=== PATIENT | male | born 1965 | race Caucasian/White ===

== ENCOUNTER 2020-06-29 11:46 | Outpatient (REF) | payer OTHER, SELFPAY | END 2020-06-29 11:47 | disposition home or self-care (01) | LOC: HO.BBR 11:46 | PROVIDERS: Visit Provider Internal Medicine Hematology | DX: D75.1 Secondary polycythemia (principal) | CPT/HCPCS: 85018; 99195 ==

== ENCOUNTER 2020-09-30 09:05 | Outpatient (REF) | payer OTHER, SELFPAY | END 2020-09-30 09:06 | disposition home or self-care (01) | LOC: HO.BBR 09:05 | PROVIDERS: Visit Provider Internal Medicine Hematology | DX: D75.1 Secondary polycythemia (principal) | CPT/HCPCS: 85014; 85018; 99195 ==

== ENCOUNTER 2020-11-14 08:28 | Outpatient (REF) | payer OTHER, SELFPAY | END 2020-11-14 08:29 | disposition home or self-care (01) | LOC: HO.BBR 08:28 | PROVIDERS: Visit Provider Internal Medicine Hematology | DX: D75.1 Secondary polycythemia (principal) | CPT/HCPCS: 36415; 85014; 85018; 99195 ==

== ENCOUNTER 2020-11-18 08:27 | Outpatient (REF) | payer OTHER, SELFPAY | END 2020-11-18 08:28 | disposition home or self-care (01) | LOC: HO.BBR 08:27 | PROVIDERS: Visit Provider Internal Medicine Hematology | DX: D75.1 Secondary polycythemia (principal) | CPT/HCPCS: 36415; 85018; 99195 ==

== ENCOUNTER 2021-01-20 07:57 | Outpatient (REF) | payer OTHER, SELFPAY | END 2021-01-20 07:58 | disposition home or self-care (01) | LOC: HO.BBR 07:57 | PROVIDERS: Visit Provider Internal Medicine Hematology | DX: Z01.818 Encounter for other preprocedural examination (principal); D75.1 Secondary polycythemia | CPT/HCPCS: 85018 ==

== ENCOUNTER 2021-03-21 08:03 | Outpatient (REF) | payer OTHER, SELFPAY | END 2021-03-21 08:04 | disposition home or self-care (01) | LOC: HO.BBR 08:03 | PROVIDERS: Visit Provider Internal Medicine Hematology | DX: D75.1 Secondary polycythemia (principal) | CPT/HCPCS: 85014; 85018; 99195 ==

== ENCOUNTER 2021-05-30 10:16 | Outpatient (REF) | payer OTHER, SELFPAY | END 2021-05-30 10:17 | disposition home or self-care (01) | LOC: HO.BBR 10:16 | PROVIDERS: Visit Provider Internal Medicine Hematology | DX: D75.1 Secondary polycythemia (principal) | CPT/HCPCS: 85018; 99195 ==

== ENCOUNTER 2021-08-08 07:53 | Outpatient (REF) | payer OTHER, SELFPAY | END 2021-08-08 07:54 | disposition home or self-care (01) | LOC: HO.BBR 07:53 | PROVIDERS: Visit Provider Internal Medicine Hematology | DX: D75.1 Secondary polycythemia (principal) | CPT/HCPCS: 85014; 85018; 99195 ==

== ENCOUNTER 2021-10-06 10:03 | Outpatient (REF) | payer OTHER, SELFPAY | END 2021-10-06 10:04 | disposition home or self-care (01) | LOC: HO.BBR 10:03 | PROVIDERS: Visit Provider Internal Medicine Hematology | DX: D75.1 Secondary polycythemia (principal) | CPT/HCPCS: 85014; 85018; 99195 ==

== ENCOUNTER 2021-12-05 09:00 | Outpatient (REF) | payer OTHER, SELFPAY | END 2021-12-05 09:01 | disposition home or self-care (01) | LOC: HO.BBR 09:00 | PROVIDERS: Visit Provider Internal Medicine Hematology | DX: D75.1 Secondary polycythemia (principal) | CPT/HCPCS: 85014; 85018; 99195 ==

== ENCOUNTER 2022-02-06 09:03 | Outpatient (REF) | payer OTHER, SELFPAY | END 2022-02-06 09:04 | disposition home or self-care (01) | LOC: HO.BBR 09:03 | PROVIDERS: Visit Provider Internal Medicine Hematology | DX: D75.1 Secondary polycythemia (principal) | CPT/HCPCS: 85018; 99195 ==

== ENCOUNTER 2022-04-20 11:11 | Outpatient (REF) | payer OTHER, SELFPAY | END 2022-04-20 11:12 | disposition home or self-care (01) | LOC: HO.BBR 11:11 | PROVIDERS: Visit Provider Internal Medicine Hematology | DX: D75.1 Secondary polycythemia (principal) | CPT/HCPCS: 85018; 99195 ==

== ENCOUNTER 2022-06-19 08:58 | Outpatient (REF) | payer OTHER, SELFPAY | END 2022-06-19 08:59 | disposition home or self-care (01) | LOC: HO.BBR 08:58 | PROVIDERS: Visit Provider Internal Medicine Hematology | DX: D75.1 Secondary polycythemia (principal) | CPT/HCPCS: 85018; 99195 ==

== ENCOUNTER 2022-08-23 09:04 | Outpatient (REF) | payer OTHER, SELFPAY | END 2022-08-23 09:05 | disposition home or self-care (01) | LOC: HO.BBR 09:04 | PROVIDERS: Visit Provider Internal Medicine Hematology | DX: D75.1 Secondary polycythemia (principal) | CPT/HCPCS: 85018; 99195 ==

== ENCOUNTER 2022-10-24 08:55 | Outpatient (REF) | payer OTHER, SELFPAY | END 2022-10-24 08:56 | disposition home or self-care (01) | LOC: HO.BBR 08:55 | PROVIDERS: Visit Provider Internal Medicine Hematology | DX: D75.1 Secondary polycythemia (principal) | CPT/HCPCS: 85018; 99195 ==

== ENCOUNTER 2023-01-02 10:52 | Outpatient (REF) | payer OTHER, SELFPAY | END 2023-01-02 10:53 | disposition home or self-care (01) | LOC: HO.BBR 10:52 | PROVIDERS: Visit Provider Internal Medicine Hematology | DX: D75.1 Secondary polycythemia (principal) | CPT/HCPCS: 85014; 85018; 99195 ==

== ENCOUNTER 2023-03-13 11:31 | Outpatient (REF) | payer OTHER, SELFPAY | END 2023-03-13 11:32 | disposition home or self-care (01) | LOC: HO.BBR 11:31 | PROVIDERS: Visit Provider Internal Medicine Hematology | DX: D75.1 Secondary polycythemia (principal) | CPT/HCPCS: 85018; 99195 ==

== ENCOUNTER 2023-05-22 08:02 | Outpatient (REF) | payer OTHER, SELFPAY | END 2023-05-22 08:03 | disposition home or self-care (01) | LOC: HO.BBR 08:02 | PROVIDERS: PCP Internal Medicine; Visit Provider Internal Medicine Hematology | DX: D75.1 Secondary polycythemia (principal) | CPT/HCPCS: 85018; 99195 ==

== ENCOUNTER 2023-08-22 09:01 | Outpatient (REF) | payer OTHER, SELFPAY | END 2023-08-22 09:02 | disposition home or self-care (01) | LOC: HO.BBR 09:01 | PROVIDERS: PCP Internal Medicine; Visit Provider Internal Medicine Hematology | DX: D75.1 Secondary polycythemia (principal) | CPT/HCPCS: 85018; 99195 ==

== ENCOUNTER 2023-11-05 08:01 | Outpatient (REF) | payer OTHER, SELFPAY | END 2023-11-05 08:02 | disposition home or self-care (01) | LOC: HO.BBR 08:01 | PROVIDERS: PCP Internal Medicine; Visit Provider Internal Medicine Hematology | DX: D75.1 Secondary polycythemia (principal) | CPT/HCPCS: 85018; 99195 ==

== ENCOUNTER 2024-01-13 09:26 | Outpatient (REF) | payer OTHER, SELFPAY | END 2024-01-13 09:27 | disposition home or self-care (01) | LOC: HO.BBR 09:26 | PROVIDERS: PCP Internal Medicine; Visit Provider Internal Medicine Hematology | DX: D75.1 Secondary polycythemia (principal) | CPT/HCPCS: 85018; 99195 ==

== ENCOUNTER 2024-04-15 08:55 | Outpatient (REF) | payer OTHER, SELFPAY | END 2024-04-15 08:56 | disposition home or self-care (01) | LOC: HO.BBR 08:55 | PROVIDERS: PCP Internal Medicine; Visit Provider Internal Medicine Hematology | DX: D75.1 Secondary polycythemia (principal) | CPT/HCPCS: 85018; 99195 ==

== ENCOUNTER 2024-06-03 08:55 | Outpatient (REF) | payer OTHER, SELFPAY | END 2024-06-03 08:56 | disposition home or self-care (01) | LOC: HO.BBR 08:55 | PROVIDERS: PCP Internal Medicine; Visit Provider Internal Medicine Hematology | DX: D75.1 Secondary polycythemia (principal) | CPT/HCPCS: 85014; 85018; 99195 ==

== ENCOUNTER 2024-10-09 08:55 | Outpatient (REF) | payer OTHER, SELFPAY | END 2024-10-09 08:56 | disposition home or self-care (01) | LOC: HO.BBR 08:55 | PROVIDERS: PCP Internal Medicine; Visit Provider Internal Medicine Hematology | DX: D75.1 Secondary polycythemia (principal) | CPT/HCPCS: 85014; 85018; 99195 ==

== ENCOUNTER 2024-12-23 10:34 | Outpatient (REF) | payer OTHER, SELFPAY ==
--- OUTSIDE RECORDS SUMMARY | 2024-12-23 12:09 | XMS_ITS | Encounter Summary ---
Author Organization [facility] Address [address] [place] [address] Care Team Providers Care Auditing Coder Name Role Phone Ayo Vuong MD Primary Care Provider + Encounter Details Date Type Department Care Team (Late st Contact Info) Description 12/21/2024 Scanned Document [address] [place] [phone] Provider, Generic Social History Tobacco Use Types Packs/Day Years Used Date Smoking Tobacco: Never Smokeless Tobacco: Never Alcohol Use Standard Drinks/Week Comments Not Currently 0 (1 standard drink = 0.6 oz pur e alcohol) Sex and Gender Information Value Date Recorded Sex Assigned at Not on file Gender Identity Not on file Sexual Orientation Not on file documented as of this encounter Plan of Treatment Not on file documented as of this encounter Visit Diagnoses Not on filedocumented in this encounter Care Teams Auditing Coder Relationship Specialty Start Date End Date Ayo Vuong MD [address] [place] [address] [address] [place] [address] PCP - General 12/21/24 documented as of this encounter
--- OUTSIDE RECORDS SUMMARY | 2024-12-23 12:09 | XMS_ITS | Clinical Summary ---
Author Organization [facility] Address [address] [place] [id number] Care Team Providers Care Skein Inspector Name Role Phone Ayo Vuong MD Primary Care Provider + Allergies No known active allergies Medications Medication Sig Dispensed Refills Start Date End Date Status Eliquis 5 MG tablet Take 5 mg by mouth 2 times a day. Active cyanocobalamin (VITAMIN B-12) 1000 MCG tablet Take 1,000 mcg by mouth daily. Active DULoxetine (CYMBALTA) 20 MG capsule Take 20 mg by mouth 2 times a day. Active Jardiance 10 MG tablet Take 1 tablet by mouth daily. 06/01/2024 Active Krill Oil 1000 MG Cap Take 1,000 mg by mouth. Active losartan-hydroCHLO ROthiazide (HYZAAR) 100-25 MG per tablet Take 1 tablet by mouth. Active metFORMIN (GLUCOPHAGE) 1000 MG tablet Take 1,000 mg by mouth 2 (two) times a day with meals. Active metoPROLOL SUCCINATE (TOPROL-XL) 50 MG 24 hr tablet Take 50 mg by mouth. 12/11/2024 Ac tive MILK THISTLE PO Take 1,000 mg by mouth. Active niacin 250 MG tablet Take 1 Tablet by mouth daily (with breakfast). Active oxyCODONE (ROXICODONE) 5 MG immediate release tablet Take 5 mg by mouth 4 (four) times a day as needed. For pain Active rosuvastatin (CRESTOR) 20 MG tablet Take 20 mg by mouth nightly. Active tadalafil (CIALIS) 5 mg tablet Take 5 mg by mouth. Acti ve testosterone enanthate (DELATESTRYL) 200 MG/ML injection testosterone enanthate 200 mg/mL intramuscular oil INJECT 0.5 CC INTRAMSUCULARLY TWICE A WEEK ON SATURDAY & SATURDAY(VIAL ONLY STABLE FOR 28 DAYS AFTER BEING PUNCTURED AND SHOULD BE DISCARDED Active Active Problems No known active problems Encounters Date Type Department Care Team Description 12/21/2024 2:32 PM EDT Hospital Encounter [facility] Urgent [address] [place] [phone] Martín Mckeon MD 12/21/2024 2:15 PM EDT Office Visit [facility] [address] [phone] Martín Mckeon MD Devitt, Anna C, APRN Right foot sprain, initial encounter (Primary Dx); Right foot injury, initial encounter 12/21/2024 Scanned Document [facility] [address] [facility] [address] [place] [phone] Provider, Generic 12/21/2024 Scanned Document [facility] [address] [facility] [address] [place] [phone] Provider, Generic 12/21/2024 Travel from Last 3 Months Social History Tobacco Use Types Packs/Day Years Used Date Smoking Tobacco: Never Smokeless Tobacco: Never Alcohol Use Standard Drinks/Week Comments Not Currently 0 (1 standard drink = 0.6 oz pur e alcohol) Sex and Gender Information Value Date Recorded Sex Assigned at Not on file Gender Identity Not on file Sexual Orientation Not on file Last Filed Vital Signs Vital Sign Reading Time Taken Comments Blood Pressure 126/78 12/21/2024 2:18 PM EDT Pulse 84 12/21/2024 2:18 PM EDT Temperature 36.5 ??C (97.7 ??F) 12/21/2024 2:18 PM ED T Respiratory Rate 16 12/21/2024 2:18 PM EDT Oxygen Saturation 96% 12/21/2024 2:18 PM EDT Inhaled Oxygen Concentration - - Weight 95.3 kg (210 lb) 12/21/2024 2:18 PM EDT Height 180.3 cm (5' 11 ) 12/21/2024 2:18 PM EDT Body Mass Index 29.29 12/21/2024 2:18 PM EDT Plan of Treatment Health Maintenance Due Date Last Done Comments Hepatitis C Virus Screening 1964 HIV Screening 1977 DTaP/Tdap/Td Vaccines (1 - Tdap) 1983 Colonoscopy 2009 Pneumococcal Vaccines 50+ (1 of 1 - PCV) 2014 Zoster (Shingles) Vaccine (1 of 2) 2014 RSV Vaccine 60 years and old er and Patients (1 - Risk 60-74 years 1-dose series) 2024 Influenza Vaccine 04/16/2024 COVID-19 Vaccine (1 - 2023-2 5 season) 2024 Hepatitis B Vaccines Aged Out No long er eligible based on patient's age to complete this topic Procedures Procedure Name Priority Date/Time Associated Diagnosis Comments XR FOOT 3+ VIEWS-RIGHT STAT 12/21/2024 2:39 PM EDT Right foot injury, initial encounter from Last 3 Months Results * XR Foot 3+ views-Right (12/21/2024 [...] the toes caught the other individuals ribs. ??Has had constant pain since that time. Comparison: None Technique: Dorsal plantar, oblique and lateral views of the right foot were obtained. Findings: ??No fracture or dislocation. Moderate hallux valgus deformity [...] halluxvalgus deformity. Norma Barnard APRN IMG DIAGNOSTIC IMAGI NG ORDERABLES from Last 3 Months Care Teams Skein Inspector Relationship Specialty Start Date End Date Ayo Vuong MD [address] [place] [address] [address] [place] [address] PCP - General 12/21/24
--- OUTSIDE RECORDS SUMMARY | 2024-12-23 12:09 | XMS_ITS | Encounter Summary ---
Author Organization [facility] Address [address] [place] [address] Care Team Providers Care Garment Form Assembler Name Role Phone Ayo Vuong MD Primary Care Provider + Encounter Details Date Type Department Care Team (Late st Contact Info) Description 12/21/2024 2:32 PM EDT Hospital Encounter [facility] Care [address] [place] [phone] Martín Mckeon MD [address] [place] [address] Social History Tobacco Use Types Packs/Day Years [...] Barnard APRN IMG DIAGNOSTIC IMAGI NG ORDERABLES documented in this encounter Visit Diagnoses Not on filedocumented in this encounter Care Teams Garment Form Assembler Relationship Specialty Start Date End Date Ayo Vuong MD [address] [place] [address] [address] [place] [address] PCP - General 12/21/24 documented as of this encounter
--- OUTSIDE RECORDS SUMMARY | 2024-12-23 12:09 | XMS_ITS | Encounter Summary ---
Author Organization [facility] Address [address] [place] [address] Care Team Providers Care Recharger Name Role Phone Ayo Vuong MD Primary Care Provider + Encounter Details Date Type Department Care Team (Late st Contact Info) Description 12/21/2024 Scanned Document [address] [place] [phone] Provider, Generic Social History Tobacco Use Types [...] on filedocumented in this encounter Care Teams Recharger Relationship Specialty Start Date End Date Ayo Vuong MD [address] [place] [address] [address] [place] [address] PCP - General 12/21/24 documented as of this encounter
--- OUTSIDE RECORDS SUMMARY | 2024-12-23 12:09 | XMS_ITS | Clinical Summary ---
Author Organization [facility] Address [address] [place] [phone] Phone Care Team Providers Care Music Agent Name Role Phone Ayo Vuong MD Primary Care Provider [phone] Allergies No known active allergies Medications metoprolol tartrate (LOPRESSOR) 25 MG tablet TAKE 1 TABLET BY MOUTH TWICE A DAY 180 tablet 1 10/28/19 20 Active Zoster Vac Recomb Adjuvanted (Shingrix) 50 MCG/0.5ML reconstituted suspension Shingrix (PF) 50 mcg/0.5 mL intramuscular suspension, kit PHARMACY ADMINISTERED Active triamcinolone (KENALOG) 0.1 % cream triamcinolone acetonide 0.1 % topical cream APPLY TO LEG RASH TWICE DAILY NEEDED NOT TO EXCEED 2 WEEKS Active testosterone enanthate (DELATESTRYL) 200 MG/ML injection testosterone enanthate 200 mg/mL intramuscular oil INJECT 0.5 CC INTRAMSUCULARLY TWICE A WEEK ON SATURDAY & SATURDAY(VIAL ONLY STABLE FOR 28 DAYS AFTER BEING PUNCTURED AND SHOULD BE DISCARDED Active oxyCODONE (ROXICODONE) 5 MG immediate release tablet oxycodone 5 mg tablet TAKE 1 TABLET BY MOUTH TWICE A DAY NEEDED Active losartan-hydroCHL OROthiazide (HYZAAR) 100-25 MG per tablet losartan 100 mg-hydrochlorothia zide 25 mg tablet TAKE 1 TABLET BY MOUTH EVERY DAY Active traZODone (DESYREL) 50 MG tablet Take 50 mg by mouth every night Active rosuvastatin (CRESTOR) 20 MG tablet Take 20 mg by mouth 1 (one) time each day Active apixaban (Eliquis) 5 MG tablet Take 5 mg by mouth in the morning and 5 mg in the evening. Active niacinamide 500 MG tablet Take 500 mg by mouth in the morning and 500 mg in the evening. Take with meals. Active Milk Thistle 1000 MG capsule Take 1,000 mg by mouth 1 (one) time each day Active Krill Oil 1000 MG capsule Take 1,000 mg by mouth 1 (one) time each day Active metFORMIN (GLUCOPHAGE) 1000 MG tablet Take 1 tablet (1,000 mg total) by mouth in the morning and 1 tablet (1,000 mg total) in the evening. Take with meals. 180 tablet 3 04/10/20 23 Active Jardiance 10 MG tablet Take 1 tablet by mouth 1 (one) time each day 06/01/20 24 Active Active Problems Problem Noted Date Diagnosed Date Vitamin D deficiency, not otherwise specified Secondary hyperparathyroidism 10/25/2024 Polycythemia, secondary 10/25/2024 Diabetes mellitus, not otherwise specified 10/25 Hyponatremia 10/25/2024 Hereditary hemochromatosis 05/04/2024 Proteinuria, not otherwise specified 10/13/2023 Pituitary mass 08/25/2023 History of radiofrequency ablation operation for arrhythmia 02/15/2023 Overview (10/25/2024): DONE on 01/23/23 at [facility] w [facility] indications:symptomatic drug refractory atrial fibrillation Atrial fibrillation 10/30/2022 Overview (10/25/2024): Paroxysmal atrial fibrillation status post cryoballoon ablation in January 2023. Brief episodes of palpitations. Prefers to stay on Eliquis. [id number] score of 2 for hypertension and diabetes. 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 Echocardiogram showed mild left and right ventricular enlargement but otherwise preserved LVEF. Trace to mild MR. No history of hyperthyroidism. Minimal alcohol exposure. Last Assessment & Plan: Doing well maintaining sinus rhythm without antiarrhythmic agents. Brief episodes of palpitations are likely premature atrial complexes. I did suggest he obtain a [employer] mobile device so we can record some of those episodes for me to review in the future. He will continue his regular exercise and healthy lifestyle. He will continue to avoid any alcohol or excessive caffeine. He will take Eliquis after a thorough discussion of pros and cons of continuing it at his own as he feels more comfortable continuing with it. Continue metoprolol for rate control and its antihypertensive effects. Chronic kidney disease stage 3 03/05/2021 Dyslipidemia 03/05/2021 Transient cerebral ischemia 02/27/2021 Overview (10/25/2024): Question of TIA 01/2021 Last Assessment & Plan: Patient seen by vascular neurology. He is on aspirin and Crestor at this point. He denies any recurrent visual changes. Vertebral artery occlusion 02/27/2021 Overview (10/25/2024): Patient has chronic right vertebral artery occlusion noted on CT scan 01/2021. Last Assessment & Plan: Patient CT scan revealed chronic right vertebral artery occlusion. No carotid stenosis identified. Continue with aspirin and crestor as prescribed. Hypertension 12/17/2018 Resolved Problems Problem Noted Date Diagnosed Date Resolved Date Hypertensive disorder 03/05/20212022 Hypogonadotropic hypogonadism 12/17/2018 03/05/2021 Pituitary microadenoma 12/17/201803/05 Sleep apnea 12/17/2018 03/05/2021 Encounters Date Type Department Care Team Description 10/28/2024 Orders Only [facility] [address] [facility] [address] [place] [id number] Joshua Serrano MD Chronic kidney disease stage 3 (HCC); Hypertension; Dyslipidemia; Proteinuria, not otherwise specified 10/26/2024 8:00 AM EST [facility] [address] [facility] [address] [place] [id number] Joshua Serrano MD Chronic kidney disease stage 3 (HCC) (Primary Dx); Dyslipidemia; Hypertension; Proteinuria, not otherwise specified; Vitamin D deficiency, not otherwise specified; Secondary hyperparathyroidism (HCC); Diabetes mellitus, not otherwise specified (HCC); Hyponatremia from Last 3 Months Family History Medical History Relation Comments Cancer Father lymphoma Hypertension Father Hypertension Mother Hypertension Sibling sister Relation Status Comments Father Unknown Mother Unknown Sibling Social History Tobacco Use Types Packs/Day Years Used Date Smoking Tobacco: Never Alcohol Use Standard Drinks/Week Comments No 0 (1 standard drink = 0.6 oz pur e alcohol) Sex and Gender Information Value Date Recorded Sex Assigned at Not on file Legal Sex Male 4:32 PM EST Gender Identity Not on file Sexual Orientation Not on file Last Filed Vital Signs Vital Sign Reading Time Taken Comments Blood Pressure 132/84 10/26/2024 7:48 AM EST Pulse 74 10/26/2024 7:48 AM EST Temperature - - Respiratory Rate - - Oxygen Saturation 97% 10/26/2024 7:48 AM EST Inhaled Oxygen Concentration - - Weight 100 kg (221 lb) 10/26/2024 7:48 AM EST Height 180.3 cm (5' 11 ) 10/26/2024 7:48 AM EST Body Mass Index 30.82 10/26/2024 7:48 AM EST Plan of Treatment Upcoming Encounters Date Type Department Care Team (Late st Contact Info) Description 04/26/2025 8:00 AM EDT Office Visit [facility] [address] [address] Joshua Serrano MD [address] [address] Health Maintenance Due Date Last Done Comments Pneumococcal Vaccine: Pediat rics (0 to 5 Years) and At-Risk Patients (6 to 64 Years) (1 of 2 - PCV) 1970 Colorectal Cancer Screening: Annual FOBT 2013 Colorectal Cancer Screening: Colonoscopy 2013 Colorectal Cancer Screening: Sigmoidoscopy 2013 Diabetes: Hemoglobin A1C 10/28/2023 Diabetes: Ophthalmology Exam 10/28/2023 Diabetes: Pedal Pulse Checked 10/28/2023 Diabetes: Sensory Foot Exam 10/28/2023 Diabetes: Visual Foot Exam 10/28/2023 Influenza Vaccine (Season Ended) 2025 Hepatitis B Vaccine Aged Out No longe r eligible based on patient's age to complete this topic Procedures Procedure Name Priority Date/Time Associated Diagnosis Comments PTH, INTACT Routine 10/23/2024 9:16 AM EST MAGNESIUM Routine 10/23/2024 9:16 AM EST PHOSPHATE ( PHOSPHORUS) Routine 10/23/2024 9:16 AM EST URIC ACID Routine 10/23/2024 9:16 AM EST VITAMIN D 25 HYDROXY Routine 10/23/2024 9:16 AM EST PROTEIN / CREATININE RATIO, URINE Routine 10/23/2024 9:16 AM EST URINALYSIS WITH MICROSCOPIC Routine 10/23/2024 9:16 AM EST COMPREHENSIVE METABOLIC PANEL Routine 10/23/2024 9:16 AM EST CBC AND DIFFERENTIAL Routine 10/23/2024 9:16 AM EST MICROSCOPIC EXAMINATION - DO NOT USE Routine 10/23/2024 9:16 AM EST from Last 3 Months Results * Microscopic Examination (10/23/2024 9:16 AM EST) WBC, Urine None seen 0 - 5 /hpf [facility] RBC, Urine None seen 0 - 2 /hpf [facility] Squamous Epithelial, Urine None seen 0 - 10 /hpf [facility] Casts None seen None seen /lpf [facility] Bacteria, Urine None seen None seen/Few [facility] 10/23/2024 9:16 AM EST 10/23/2024 us Joshua Serrano MD LAB MICROBIOLOGY - GENERAL OR DERABLES Final Result [facility] [address] [place] [address] * (ABNORMAL) Protein, Total, Random Urine w/Creatinine (Protein/Creat Ratio) (10/23/2024 9:16 AM EST) Creatinine, Ur 115.3 Not Estab. mg/dL [facility] Protein, Ur 73.8 Not Estab. mg/dL [facility] Urine Protein/Creati nine Ratio 640(H) 0 - 200 mg/g creat [facility] 10/23/2024 9:16 AM EST 10/23/2024 Joshua Serrano MD LAB URINE ORDERABLES Final Re sult Performing Organization Address City/[facility]/ZIP Co de Phone Number [facility] [address] [place] [address] * Vitamin D 25 Hydroxy (10/23/2024 9:16 AM EST) Vitamin D, 25-OH, Total 33.4 30.0 - 100.0 ng/mL [facility] Comment: Vitamin D deficiency has been defined by the Keeler of Medicine and an Endocrine Society practice guideline as a level of serum 25-OH vitamin D less than 20 ng/mL (1,2). The Endocrine Society went on to further define vitamin D insufficiency as a level between 21 and 29 ng/mL (2). 1. IOM (Keeler of Medicine). 2010. Dietary reference ?? intakes for calcium and D. [place]: The ?? National Academies Press. 2. Maurice MF, Arjun NC, Esteban BEVERLY, et al. ?? Evaluation, treatment, and prevention of vitamin D ?? deficiency: an Endocrine Society clinical practice ?? guideline. JCEM. 2010; 96(7):1911-30. 10/23/2024 9:16 AM EST 10/23/2024 Joshua Serrano MD LAB BLOOD ORDERABLES Final Re sult [facility] [address] [place] [address] * (ABNORMAL) Urinalysis with microscopic (10/23/2024 9:16 AM EST) Specific [place], Urine >=1.030(A) 1.005 - 1.030 [facility] pH Urine 5.5 5.0 - 7.5 [facility] [phone] Color, Urine Yellow Yellow [facility] Appearance Urine Clear Clear [facility] WBC Esterase Urine Negative Negative [facility] [phone] Protein, Ur 2+(A) Negative/Tra ce [facility] Glucose, Ur 3+(A) Negative [facility] Ketones, Urine Negative Negative [facility] [phone] Blood Urine Negative Negative [facility] Bilirubin Urine Negative Negative [facility] Urobilinogen Urine 0.2 0.2 - 1.0 mg/dL [facility] Nitrite, Urine Negative Negative [facility] Microscopic Examination See below: [facility] Comment:Microscopic was alesia cated and was performed. 10/23/2024 9:16 AM EST 10/23/2024 us Joshua Serrano MD LAB URINE ORDERABLES Final Re sult [facility] [address] [place] [address] * (ABNORMAL) CBC and Differential (10/23/2024 9:16 AM EST) Pathologist [facility] WBC 7.5 3.4 - 10.8 x10E3/uL [facility] RBC 6.03(H) 4.14 - 5.80 x10E6/uL [facility] Hemoglobin 15.9 13.0 - 17.7 g/dL [facility] Hematocrit 51.2(H) 37.5 - 51.0 % [facility] MCV 85 79 - 97 fL [facility] MCH 26.4(L) 26.6 - 33.0 pg [facility] MCHC 31.1(L) 31.5 - 35.7 g/dL [facility] RDW 15.1 11.6 - 15.4 % [facility] Platelets 247 150 - 450 x10E3/uL [facility] Neutrophils Relative 68 Not Estab. % [facility] Lymphocytes Relative 20 Not Estab. % [facility] Monocytes 9 Not Estab. % [facility] Eosinophils Relative 2 Not Estab. % [facility] Basophils Relative 1 Not Estab. % [facility] Neutrophils Absolute 5.1 1.4 - 7.0 x10E3/uL [facility] Lymphocytes Absolute 1.5 0.7 - 3.1 x10E3/uL [facility] Monocytes Absolute 0.7 0.1 - 0.9 x10E3/uL [facility] Eosinophils Absolute 0.2 0.0 - 0.4 x10E3/uL [facility] Basophils Absolute 0.1 0.0 - 0.2 x10E3/uL [facility] Immature Granulocytes 0 Not Estab. % [facility] Immature Grans (Absolute) 0.0 0.0 - 0.1 x10E3/uL [facility] 10/23/2024 9:16 AM EST 10/23/2024 us Joshua Serrano MD LAB BLOOD ORDERABLES Final Re sult Performing Organization Address [facility]/ZIP Co de Phone [facility] [address] [place] [address] * Uric Acid (10/23/2024 9:16 AM EST) Uric Acid 5.7 3.8 - 8.4 mg/dL [facility] Comment:Therapeutic target f or gout patients: <6.0 10/23/2024 9:16 AM EST 10/23/2024 us Joshua Serrano MD LAB BLOOD ORDERABLES Final Re sult Performing Organization Address [facility] de Phone Number [facility] [address] [place] [address] * (ABNORMAL) Phosphorus (10/23/2024 9:16 AM EST) Phosphorus 2.4(L) 2.8 - 4.1 mg/dL [facility] 10/23/2024 9:16 AM EST 10/23/2024 us Joshua Serrano MD LAB BLOOD ORDERABLES Final Re sult Performing Organization Address [facility] Co de Phone Number [facility] [address] [place] [address] * PTH, Intact (10/23/2024 9:16 AM EST) PTH 23 15 - 65 pg/mL [facility] 10/23/2024 9:16 AM EST 10/23/2024 us Joshua Serrano MD LAB BLOOD ORDERABLES [facility] [address] [place] [address] * Magnesium (10/23/2024 9:16 AM EST) Pathologist [facility] Magnesium 2.2 1.6 - 2.3 mg/dL [facility] 10/23/2024 9:16 AM EST 10/23/2024 Joshua Serrano MD LAB BLOOD ORDERABLES Final Re sult Performing Organization Address City/[facility]/ZIP Co de Phone Number [facility] [address] [place] [address] * (ABNORMAL) Comprehensive Metabolic Panel (10/23/2024 9:16 AM EST) Pathologist [facility] Glucose 118(H) 70 - 99 mg/dL [facility] BUN 27 8 - 27 mg/dL [facility] Creatinine 1.78(H) 0.76 - 1.27 mg/dL [facility] eGFR CKD-EPI CR 2020 43(L) >59 mL/min/1.7 3 [facility] BUN/Creatinine Ratio 15 10 - 24 [facility] Sodium 140 134 - 144 mmol/L [facility] Potassium 4.2 3.5 - 5.2 mmol/L [facility] Chloride 101 96 - 106 mmol/L [facility] Bicarbonate (CO2) 22 20 - 29 mmol/L [facility] Calcium 9.8 8.6 - 10.2 mg/dL [facility] Total Protein 7.1 6.0 - 8.5 g/dL [facility] Albumin 4.8 3.8 - 4.9 g/dL [facility] Globulin 2.3 1.5 - 4.5 g/dL [facility] Total Bilirubin 0.9 0.0 - 1.2 mg/dL [facility] Alkaline Phosphatase 57 44 - 121 IU/L [facility] AST (SGOT) 37 0 - 40 IU/L [facility] ALT (SGPT) 36 0 - 44 IU/L [facility] 10/23/2024 9:16 AM EST 10/23/2024 us Joshua Serrano MD LAB BLOOD ORDERABLES Final [facility] Organization Address City/State/ZIP Co de Phone Number [facility] [address] [place] [address] from Last 3 Months Insurance [facility] Care Teams Music Agent Relationship Specialty Start Date End Date Ayo Vuong MD [facility] [address] [facility] [address] [place], [place] PCP - General 07/21/19
--- OUTSIDE RECORDS SUMMARY | 2024-12-23 12:09 | XMS_ITS | Clinical Summary ---
Author Organization [facility] Address [address] [facility] [place] [address] Phone Care Team Providers Care Digital Art Director Name Role Phone Ayo Vuong MD Primary Care Provider [phone] Allergies No known active allergies Medications apixaban (Eliquis) 5 mg tablet Take 1 tablet (5 mg total) by mouth 2 (two) times a day. 06/04/2023 Active empagliflozin (Jardiance) 10 mg tablet Take 10 mg by mouth daily. Active tadalafiL (CIALIS) 5 mg tablet Take 1 tablet (5 mg total) by mouth 1 (one) time each day. Active cyanocobalamin (VITAMIN B-12) 1,000 mcg tablet Take 1 tablet (1,000 mcg total) by mouth 1 (one) time each day. Active niacin 250 mg tablet Take 1 Tablet by mouth daily (with breakfast). Active TURMERIC ORAL Take by mouth daily. Active MILK THISTLE ORAL Take 1,000 mg by mouth daily. Active OMEGA-3 FATTY ACIDS-FISH OIL ORAL Take by mouth daily. Active metoprolol tartrate (LOPRESSOR) 50 mg tablet Take 1 tablet (50 mg total) by mouth 1 (one) time each day. 05/07/2022 Active rosuvastatin (CRESTOR) 20 mg tablet Take 20 mg by mouth daily. Active testosterone cypionate (Testone CIK) 200 mg/mL injection Inject 200 mg into the skin once a week. 11/10/2017 Active losartan-hydroC HLOROthiazide (HYZAAR) 100-25 mg per tablet Take 1 tablet by mouth 1 (one) time each day. Active oxyCODONE (ROXICODONE) 5 mg immediate release tablet Take 5 mg by mouth every 4 hours as needed. Active metFORMIN (GLUCOPHAGE) 1,000 mg tablet Take 1 tablet (1,000 mg total) by mouth 2 (two) times a day with meals. Active DULoxetine (CYMBALTA) [address] capsule Take 1 capsule (20 mg total) by mouth 1 (one) time each day. Do not crush or chew. Active Active Problems Problem Noted Date Diagnosed Date Diabetes 07/12/2023 Atrial fibrillation 10/30/2022 Overview (09/25/2024): Paroxysmal atrial fibrillation status post cryoballoon ablation in January 2023. Brief episodes of palpitations. Prefers to stay on Eliquis. [id number] score of 2 for hypertension and diabetes. [...] complexes. I did suggest he obtain a [employer] mobile device so we can record some [...] for rate control and its antihypertensive effects. High cholesterol 03/08/2022 Overview (09/25/2024): Last Assessment & Plan: Patient continues on rosuvastatin 20 mg once a day. His last LDL cholesterol was 54. This is at goal. VIRI (obstructive sleep apnea) 02/27/2021 Overview (09/25/2024): Last Assessment & Plan: Patient encouraged to continue with obstructive sleep apnea treatment. TIA (transient ischemic attack) 02/27/2021 Overview (09/25/2024): Question of TIA 01/2021 Last Assessment & Plan: Patient seen by vascular neurology. He is on aspirin and Crestor at this point. He denies any recurrent visual changes. Vertebral artery occlusion 02/27/2021 Overview (09/25/2024): Patient has chronic right vertebral artery occlusion noted on CT scan 01/2021. Last Assessment & Plan: Patient CT scan revealed chronic right vertebral artery occlusion. No carotid stenosis identified. Continue with aspirin and crestor as prescribed. Hypertension 08/26/2020 Overview (09/25/2024): Last Assessment & Plan: Appears to be normotensive on current medications and diet. Continue regular exercise. Encounters Date Type Department Care Team Description 11/18/2024 8:40 AM EST Office Visit [facility] [address] [place] [address] Leslie Dobbs NP Atrial fibrillation, unspecified type (CMS/HCC) (Primary Dx); Primary hypertension; High cholesterol from Last 3 Months Surgical History Surgery Date Site/Laterality Comments APPENDECTOMY PROCEDURE: HISTORICAL APPENDECTOMY ROTATOR CUFF REPAIR PROCEDURE: HISTORICAL ROTATOR CUFF REPAIR Medical History Medical History Date Comments Testicular hypofunction 03/08/2022 DX:Testi cular hypofunction Erectile dysfunction DX:Erectile dysfunction Osteoarthritis DX:Osteoarthriti s; COMMENT: of LT and Rt knee joints 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) DX:Neoplasm of uncertain beh avior of pituitary gland (HCC) Arthritis of left wrist DX:Arthr itis of left wrist History of hypogonadism DX:Histo ry of hypogonadism Erythrocytosis DX:Erythrocytosi s; COMMENT: idiopathic Transient cerebral ischemia DX:T ransient cerebral ischemia Family History Medical History Relation Name Comments Other: hodgkin's disease Father Arthritis Mother Coronary artery disease Mother Hypertension Mother Relation Name Status Comments Father Mother Alive Social History Tobacco Use Types Packs/Day Years Used Date Smoking Tobacco: Never Smokeless Tobacco: Never Alcohol Use Standard Drinks/Week Comments Not Currently 0 (1 standard drink = 0.6 oz pur e alcohol) Sex and Gender Information Value Date Recorded Sex Assigned at Not on file Legal Sex Male 7:40 PM EST Gender Identity Not on file Sexual Orientation Not on file Obstetrics History Last Filed Vital Signs Vital Sign Reading Time Taken Comments Blood Pressure 100/68 11/18/2024 8:49 AM EST Pulse 67 11/18/2024 8:39 AM EST Temperature - - Respiratory Rate - - Oxygen Saturation - - Inhaled Oxygen Concentration - - Weight 99.8 kg (220 lb) 11/18/2024 8:39 AM EST Height 180.3 cm (5' 11 ) 11/18/2024 8:39 AM EST Body Mass Index 30.68 11/18/2024 8:39 AM EST Plan of Treatment Health Maintenance Due Date Last Done Comments Diabetes: Annual GFR (Glomerular Filtration Rate) 1964 Diabetes: Annual Foot Exam 1974 Diabetes: Annual Retina Eye Exam 1974 DTaP,Tdap,and Td Vaccines (1 - Tdap) 1983 Pneumococcal Vaccine: 50+ Years (1 of 2 - PCV) 1983 Pneumococcal Vaccine: Pediatrics (0 to 5 Years) and At-Risk Patients (6 to 64 Years) (1 of 2 - PCV) 1983 Cholesterol Screening (Lipid Panel) 08/25/2022 Colorectal Cancer Screening: Colonoscopy 08/25/2022 Depression Screening 08/25/2022 HIV Screening 08/25/2022 Hepatitis C Screening 08/25/2022 Social Influencers of Health Screening 08/25/2022 Hypertension/CHF/CAD Annual BMP Blood Test 08/26/2022 Diabetes: Annual Urine Albumin-Creatinine Ratio (uACR) 10/18/2023 Diabetes: Blood Sugar Control Test (HGBA1C) 10/18/2023 RSV Immunization Adult Patients (1 - Risk 60-74 years 1-dose series) 2024 COVID-19 Vaccine ( season) 2024 07/07/2021, 12/27/2020, 12/06/2020 Zoster Vaccines Completed 02/02/2021, 07/13/2020 Influenza Vaccine Completed 07/15/2024, , 07/07/2021, Additional history exists HIB Vaccines Aged Out No longer eligi ble based on patient's age to complete this topic HPV Vaccines Aged Out No longer eligi ble based on patient's age to complete this topic Hepatitis A Vaccines Aged Out No long er eligible based on patient's age to complete this topic Hepatitis B Vaccines Aged Out No long er eligible based on patient's age to complete this topic IPV Vaccines Aged Out No longer eligi ble based on patient's age to complete this topic MMR Vaccines Aged Out No longer eligi ble based on patient's age to complete this topic Meningococcal ACWY Vaccine Aged Out N o longer eligible based on patient's age to complete this topic Meningococcal B Vaccine Aged Out No l onger eligible based on patient's age to complete this topic RSV Immunization Patients Under 20 months Aged Out No longer eligible based on patient's age to complete this topic Varicella Vaccines Aged Out No longer eligible based on patient's age to complete this topic Procedures Procedure Name Priority Date/Time Associated Diagnosis Comments ECG 12-LEAD Routine 11/18/2024 9:38 AM EST Atrial fibrillation, unspecified type (CMS/HCC) from Last 3 Months Results * ECG 12 lead (11/18/2024 9:38 AM EST) Ventricular Rate ECG 67 BPM GEMUSE Atrial Rate 67 BPM GEMUSE P-R Interval 152 ms GEMUSE QRS Duration 98 ms GEMUSE Q-T Interval 362 ms GEMUSE QTc 382 ms GEMUSE P Wave [place] 68 degrees GEMUSE R [place] 88 degrees GEMUSE T [place] 44 degrees GEMUSE ECG Interpretation Normal sinus rhythm Incomplete right bundle branch block Borderline ECG No previous ECGs available Confirmed by Ivan CARRILLO JAMES ([id number]) on 11/18/2024 12:32:00 PM GEMUSE 11/18/2024 8:47 AM EST 11/18/2024 12:32 PM EST us Leslie Dobbs NP ECG ORDERABLES Edited Resul t - Final GEMUSE from Last 3 Months Insurance [facility] Care Teams Digital Art Director Relationship Specialty Start Date End Date Ayo Vuong MD [address] [place], [place] PCP - General 11/19/17
--- OUTSIDE RECORDS SUMMARY | 2024-12-23 12:09 | XMS_ITS | Encounter Summary ---
Author Organization [facility] Address [address] [place] [id number] Care Team Providers Care Linotyper Name Role Phone Ayo Vuong MD Primary Care Provider + Reason for Visit * Reason Comments Foot Injury Right foot pain afte r kicking someone during kickboxing approx. 1 week ago. Encounter Details Date Type Department Care Team (Late st Contact Info) Description 12/21/2024 2:15 PM EDT Office Visit [facility] [address] [phone] Martín Mckeon MD [address] [place] [address] Norma Barnard, VETERINARY LABORATORY TECHNICIAN [address] [place] [address] Right foot sprain, initial encounter (Primary Dx); Right foot injury, initial encounter Social History Tobacco Use Types Packs/Day Years Used Date Smoking Tobacco: Never Smokeless Tobacco: Never Alcohol Use Standard Drinks/Week Comments Not Currently 0 (1 standard drink = 0.6 oz pur e alcohol) Sex and Gender Information Value Date Recorded Sex Assigned at Not on file Gender Identity Not on file Sexual Orientation Not on file documented as of this encounter Last Filed Vital Signs Vital Sign Reading [...] Mass Index 29.29 12/21/2024 2:18 PM EDT documented in this encounter Progress Notes * Norma Barnard, MARTITA - 12/21/2024 2:42 PM EDT Assessment & Plan Alex was seen today for foot injury. Diagnoses and all orders for this visit: Right foot sprain, initial encounter Right foot injury, initial encounter - XR Foot 3+ views-Right I independently reviewed the Xray images via the electronic system and my reading is as follows: 3 Views, right foot Final Read: no fracture or dislocation Foot sprain. Wear firm supportive shoes. Advised to continue with ice, elevation, analgesics, avoiding activity that exacerbates pain. Follow-up with remote medical coder if pain persist for greater than 7 days. Patient verbalized understanding and agreement with current plan of treatment. No results found for this or any previous visit (from the past 2 hour(s)). Subjective Subjective Patient ID: Alex Fritz is a 59 y.o. male. Patient is a kickboxing. About a week ago he had been kickboxing with villalba guards and foot guards but when he went to kick the other individual he stepped back and his toes hit the ribs of the opponent. He had a lot of swelling as well as black and blue discoloration at that time and has had constant pain since the incident. It hurts for him to bend his first or third toes. He is having some discomfort with standing and walking as well. Has been treating with firm supportive shoes as well as NSAIDs with no improvement. Review of Systems Constitutional: Positive for activity change. Negative for appetite change, chills, diaphoresis andfatigue. Musculoskeletal: Positive for arthralgias, gait problem, joint swelling and myalgias. Skin: Positive for color change. Neurological: Negative for dizziness, weakness, numbness and headaches. Objective Objective Vitals: 12/21/24 1418 BP: 126/78 Pulse: 84 Resp: 16 Temp: 97.7 ??F (36.5 ??C) SpO2: 96% Weight: 95.3 kg (210 lb) Height: 1.803 m (5' 11 ) Physical Exam Vitals and nursing note reviewed. Constitutional: General: He is awake. Appearance: Normal appearance. He is well-developed and well-groomed. He is not ill-appearing, toxic-appearing or diaphoretic. Pulmonary: Effort: Pulmonary effort is normal. Musculoskeletal: Right foot: Decreased range of motion. Normal capillary refill. Swelling, tenderness and bony tenderness present. No crepitus. Normal pulse. Left foot: Normal. Comments: There is pain with palpation of the 1st through 3rd metatarsals near the MTP joint. Limited range of motion of the 1st through 3rd toes. No axial load tenderness. No pain with palpation of the toes. Skin: General: Skin is warm and dry. Neurological: General: No focal deficit present. Mental Status: He is alert and oriented to person, place, and time. Psychiatric: Attention and Perception: Attention normal. Mood and Affect: Affect normal. Behavior: Behavior normal. Behavior is cooperative. documented in this encounter Plan of Treatment Not on [...] ORDERABLES documented in this encounter Visit Diagnoses Diagnosis Right foot sprain, initial encounter- Primary Right foot injury, initial encounter documented in this encounter Care Teams Linotyper Relationship Specialty Start Date End Date Ayo Vuong MD [address] [facility] [address] [place] [address] PCP - General 12/21/24 documented as of this encounter
--- OUTSIDE RECORDS SUMMARY | 2024-12-23 12:09 | XMS_ITS | Encounter Summary ---
Author Organization [facility] Address [address] [place] [address] Care Team Providers Care Kitchen Porter Name Role Phone Ayo Vuong MD Primary Care Provider + Encounter Details Date Type Department Care Team (Latest Contact Info) Description 12/21/2024 Travel Social History Tobacco Use Types Packs/Day Years [...] on filedocumented in this encounter Care Teams Kitchen Porter Relationship Specialty Start Date End Date Ayo Vuong MD [address] [facility] [address] [place] [address] PCP - General 12/21/24 documented as of this encounter
== END 2024-12-23 10:35 | disposition home or self-care (01) ==
LOC: HO.BBR 10:34
PROVIDERS: PCP Internal Medicine; Visit Provider Internal Medicine Hematology & Oncology
DX: D75.1 Secondary polycythemia (principal)
CPT/HCPCS: 85018; 99195

== ENCOUNTER 2025-05-26 10:38 | Outpatient (REF) | payer OTHER, SELFPAY ==
--- OUTSIDE RECORDS SUMMARY | 2024-12-21 14:32 | XMS_ITS | Encounter Summary ---
Author Organization [facility] Address [address] [place] [address] Care Team Providers Care Furnace Feeder Name Role Phone Ayo Vuong MD Primary Care Provider + Encounter Details Date Type Department Care Team (Late st Contact Info) Description 12/21/2024 2:32 PM EDT Hospital Encounter [facility] [address] [place] [phone] Martín Mckeon MD [address] [place] [address] Social History Tobacco Use Types Packs/Day Years Used Date Smoking Tobacco: Never Smokeless Tobacco: Never Alcohol Use Standard Drinks/Week Comments Not Currently 0 (1 standard drink = 0.6 oz pur e alcohol) Sex and Gender Information Value Date Recorded Sex Assigned at Not on file Legal Sex Male 6:45 PM EST Gender Identity Not on file Sexual Orientation Not on file documented as of this encounter Plan of Treatment Not on file documented as of this encounter Procedures Procedure Name Priority Date/Time Associated Diagnosis Comments XR FOOT 3+ VIEWS-RIGHT STAT 12/21/2024 2:39 PM EDT Right foot injury, initial encounter documented in this encounter Results * XR Foot 3+ views-Right (12/21/2024 2:39 PM EDT) Anatomical Region Laterality Modality Foot Right Computed Radiogr aphy 12/21/2024 2:52 PM EDT Impressions 12/21/2024 2:56 PM EDT Mild degenerative changes of the first MCP joint due to moderate hallux valgus deformity. Narrative 12/21/2024 2:56 PM EDT History: Hurt 1st through 3rd metatarsals approximately 7 days ago during kickboxing, the toes caught the other individuals ribs. Has had constant pain since that time. Comparison: None Technique: Dorsal plantar, oblique and lateral views of the right foot were obtained. Findings: No fracture or dislocation. Moderate hallux valgus deformity with early degenerative changes of the MCP joint. Punctate circumscribed soft tissue calcifications over the medial aspect of the first metatarsal head are likely degenerative. No periosteal new bone. Soft tissues are otherwise unremarkable. Procedure Note Rusty Santana MD - 12/21/2024 History: Hurt 1st through 3rd metatarsals approximately 7 days ago duringkickboxing, the toes caught the other individuals ribs. Has had constantpain since that time. Comparison: None Technique: Dorsal plantar, oblique and lateral views of the right footwere obtained. Findings: No fracture or dislocation. Moderate hallux valgus deformitywith early degenerative changes of the MCP joint. Punctate circumscribedsoft tissue calcifications over the medial aspect of the first metatarsalhead are likely degenerative. No periosteal new bone. Soft tissues are otherwise unremarkable. IMPRESSION: Mild degenerative changes of the first MCP joint due to moderate halluxvalgus deformity. Norma Barnard APRN IMG DIAGNOSTIC IMAGING ORDERA BLES Final Result documented in this encounter Visit Diagnoses Not on filedocumented in this encounter Care Teams Furnace Feeder Relationship Specialty Start Date End Date Ayo Vuong MD [address] [place] [address] [address] [place] [address] PCP - General 12/21/24 documented as of this encounter
--- OUTSIDE RECORDS SUMMARY | 2025-05-26 13:13 | XMS_ITS | Clinical Summary ---
Author Organization [facility] Address [address] [place] [phone] Phone Care Team Providers Care Certified Tumor Registrar Name Role Phone Ayo Vuong MD Primary Care Provider [phone] Allergies No known active allergies Medications metoprolol [...] (one) time each day 06/01/20 24 Active amoxicillin-clavu lanate (AUGMENTIN) 875-125 MG per tablet TAKE 1 TABLET BY MOUTH TWICE A DAY FOR 10 DAYS WITH FOOD 01/11/20 25 Active Active Problems Problem Noted Date Diagnosed Date Vitamin D deficiency, not otherwise specified Secondary hyperparathyroidism 10/25/2024 Polycythemia, secondary 10/25/2024 Diabetes mellitus, not otherwise specified 10/25 Hyponatremia 10/25/2024 Hereditary hemochromatosis 05/04/2024 Proteinuria, not otherwise specified 10/13/2023 Pituitary mass 08/25/2023 History of radiofrequency ablation operation for arrhythmia 02/15/2023 Overview (10/25/2024): DONE on 01/23/23 at [facility] indications:symptomatic drug refractory atrial fibrillation Atrial fibrillation 10/30/2022 Overview (10/25/2024): Paroxysmal atrial fibrillation status post cryoballoon ablation in January 2023. Brief episodes of palpitations. Prefers to stay on Eliquis. [id number] score of 2 for hypertension and diabetes. [...] complexes. I did suggest he obtain a [email or web address] mobile device so we can record some [...] Encounters Date Type Department Care Team Description 04/25/2025 Orders Only [facility] [address] [phone] Joshua Serrano MD Chronic kidney disease stage 3 (HCC); Dyslipidemia; Hypertension; Proteinuria, not otherwise specified; Vitamin D deficiency, not otherwise specified; Secondary hyperparathyroidism (HCC); Diabetes mellitus, not otherwise specified (HCC); Hyponatremia 04/19/2025 8:00 AM EDT Office Visit [facility] [address] [phone] Joshua Serrano MD Chronic kidney disease stage 3 (HCC) (Primary Dx); Hypertension; Hyponatremia; Proteinuria, not otherwise specified; Secondary hyperparathyroidism (HCC); Transient cerebral ischemia, not otherwise specified; Vitamin D deficiency, not otherwise specified; Hereditary hemochromatosis (HCC); Dyslipidemia from Last 3 Months Family History Medical [...] Sign Reading Time Taken Comments Blood Pressure 140/78 04/19/2025 8:03 AM EDT Pulse 76 04/19/2025 8:03 AM EDT Temperature - - Respiratory Rate - - Oxygen Saturation 97% 04/19/2025 8:03 AM EDT Inhaled Oxygen Concentration - - Weight 103 kg (226 lb) 04/19/2025 8:03 AM EDT Height 180.3 cm (5' 11 ) 10/26/2024 7:48 AM EST Body Mass Index 31.52 10/26/2024 7:48 AM EST Plan of Treatment Upcoming Encounters Date Type Department Care Team (Late st Contact Info) Description 10/20/2025 8:00 AM EST Office [facility] [address] [phone] Joshua Serrano MD [address] [phone] Health Maintenance Due Date Last Done Comments Pneumococcal Vaccine: 50+ Ye ars (1 of 2 - PCV) 1983 Colorectal Cancer Screening: Annual FOBT 2013 Colorectal Cancer Screening: Colonoscopy 2013 Colorectal Cancer Screening: Sigmoidoscopy 2013 Diabetes: Hemoglobin A1C 10/28/2023 Diabetes: Ophthalmology Exam 10/28/2023 Diabetes: Pedal Pulse Checked 10/28/2023 Diabetes: Sensory Foot Exam 10/28/2023 Diabetes: Visual Foot Exam 10/28/2023 Influenza Vaccine (#1) 2025 Hepatitis B Vaccine Aged Out No longe r eligible based on patient's age to complete this topic Procedures Procedure Name Priority Date/Time Associated Diagnosis Comments PTH, INTACT Routine 04/12/2025 6:50 AM EDT MAGNESIUM Routine 04/12/2025 6:50 AM EDT PHOSPHATE ( PHOSPHORUS) Routine 04/12/2025 6:50 AM EDT URIC ACID Routine 04/12/2025 6:50 AM EDT VITAMIN D 25 HYDROXY Routine 04/12/2025 6:50 AM EDT PROTEIN / CREATININE RATIO, URINE Routine 04/12/2025 6:50 AM EDT COMPREHENSIVE METABOLIC PANEL Routine 04/12/2025 6:50 AM EDT CBC AND DIFFERENTIAL Routine 04/12/2025 6:50 AM EDT from Last 3 Months Results * (ABNORMAL) Protein, Total, Random Urine w/Creatinine (Protein/Creat Ratio) (04/12/2025 6:50 AM EDT) Creatinine, Ur 129.8 Not Estab. mg/dL [facility] Protein, Ur 70.0 Not Estab. mg/dL [facility] Urine Protein/Creati nine Ratio 539(H) 0 - 200 mg/g creat [facility] 04/12/2025 6:50 AM EDT 04/12/2025 us Joshua Serrano MD LAB URINE ORDERABLES Final Re sult [facility] [address] [place] [address] * Vitamin D 25 Hydroxy (04/12/2025 6:50 AM EDT) Vitamin D, 25-OH, Total 51.7 30.0 - 100.0 ng/mL [facility] Comment: Vitamin D deficiency has been defined by the [place] of [employer] and an Endocrine Society practice guideline as a level of serum 25-OH vitamin D less than 20 ng/mL (1,2). The Endocrine Society went on to further define vitamin D insufficiency as a level between 21 and 29 ng/mL (2). 1. IOM ([place] of [employer]). 2010. Dietary reference intakes for calcium and D. [place]: The National Academies Press. 2. Maurice MF, Arjun PAL, Esteban BEVERLY, et al. Evaluation, treatment, and prevention of vitamin D deficiency: an Endocrine Society clinical practice guideline. JCEM. 2010; 96(7):1911-30. 04/12/2025 6:50 AM EDT 04/12/2025 us Joshua Serrano MD LAB BLOOD ORDERABLES Final Re sult [facility] [address] [place] [address] * (ABNORMAL) CBC and Differential (04/12/2025 6:50 AM EDT) WBC 7.4 3.4 - 10.8 x10E3/uL [facility] RBC 6.16(H) 4.14 - 5.80 x10E6/uL [facility] Hemoglobin 15.2 13.0 - 17.7 g/dL [facility] Hematocrit 51.8(H) 37.5 - 51.0 % [facility] MCV 84 79 - 97 fL [facility] MCH 24.7(L) 26.6 - 33.0 pg [facility] MCHC 29.3(L) 31.5 - 35.7 g/dL [facility] RDW 18.3(H) 11.6 - 15.4 % [facility] Platelets 213 150 - 450 x10E3/uL [facility] Neutrophils Relative 62 Not Estab. % [facility] Lymphocytes Relative 26 Not Estab. % [facility] Monocytes 9 Not Estab. % [facility] Eosinophils Relative 2 Not Estab. % [facility] Basophils Relative 1 Not Estab. % [facility] Neutrophils Absolute 4.6 1.4 - 7.0 x10E3/uL [facility] Lymphocytes Absolute 1.9 0.7 - 3.1 x10E3/uL [facility] Monocytes Absolute 0.6 0.1 - 0.9 x10E3/uL [facility] Eosinophils Absolute 0.2 0.0 - 0.4 x10E3/uL [facility] Basophils Absolute 0.1 0.0 - 0.2 x10E3/uL [facility] Immature Granulocytes 0 Not Estab. % [facility] Immature Grans (Absolute) 0.0 0.0 - 0.1 x10E3/uL [facility] 04/12/2025 6:50 AM EDT 04/12/2025 us Joshua Serrano MD LAB BLOOD ORDERABLES Final Re sult [facility] [address] [place] [phone] * Uric Acid (04/12/2025 6:50 AM EDT) Uric Acid 4.8 3.8 - 8.4 mg/dL [facility] Comment:Therapeutic target f or gout patients: <6.0 04/12/2025 6:50 AM EDT 04/12/2025 Joshua Serrano MD LAB BLOOD ORDERABLES Final Re sult Performing Organization Address City/[facility]/ZIP Co de Phone Number [facility] [address] [place] [phone] * (ABNORMAL) Phosphorus (04/12/2025 6:50 AM EDT) Phosphorus 2.4(L) 2.8 - 4.1 mg/dL [facility] 04/12/2025 6:50 AM EDT 04/12/2025 Joshua Serrano MD LAB BLOOD ORDERABLES Final Re sult Performing Organization Address [facility]/ZIP Co de Phone Number [facility] [address] [place] [address] * PTH, Intact (04/12/2025 6:50 AM EDT) PTH 15 15 - 65 pg/mL [facility] 04/12/2025 6:50 AM EDT 04/12/2025 Joshua Serrano MD LAB BLOOD ORDERABLES Final Re sult Performing Organization Address City/[facility]/ZIP Co de Phone Number [facility] [address] [place] [address] * Magnesium (04/12/2025 6:50 AM EDT) Magnesium 1.9 1.6 - 2.3 mg/dL [facility] 04/12/2025 6:50 AM EDT 04/12/2025 us Joshua Serrano MD LAB BLOOD ORDERABLES Final Re sult [facility] [address] [place] [address] * (ABNORMAL) Comprehensive Metabolic Panel (04/12/2025 6:50 AM EDT) Glucose 93 70 - 99 mg/dL [facility] BUN 24 8 - 27 mg/dL [facility] Sodium 138 134 - 144 mmol/L [facility] Potassium 4.5 3.5 - 5.2 mmol/L [facility] Chloride 100 96 - 106 mmol/L [facility] Calcium 10.3(H) 8.6 - 10.2 mg/dL [facility] Albumin 4.7 3.9 - 4.9 g/dL [facility] AST (SGOT) 40 0 - 40 IU/L [facility] Creatinine 1.43(H) 0.76 - 1.27 mg/dL [facility] eGFR CKD-EPI CR 2020 56(L) >59 mL/min/1.7 3 [facility] BUN/Creatinine Ratio 17 10 - 24 [facility] Bicarbonate (CO2) 20 20 - 29 mmol/L [facility] Total Protein 7.2 6.0 - 8.5 g/dL [facility] Globulin 2.5 1.5 - 4.5 g/dL [facility] Total Bilirubin 2.4(H) 0.0 - 1.2 mg/dL [facility] Alkaline Phosphatase 53 44 - 121 IU/L [facility] ALT (SGPT) 36 0 - 44 IU/L [facility] 04/12/2025 6:50 AM EDT 04/12/2025 us Joshua Serrano MD LAB BLOOD ORDERABLES Final Re sult [facility] [address] [place] [phone] from Last 3 Months Insurance [facility] [address] [address] [facility] Care Teams Certified Tumor Registrar Relationship Specialty Start Date End Date Ayo Vuong MD [facility] [address] [facility] [address] [place], [place] PCP - General 07/21/19
--- OUTSIDE RECORDS SUMMARY | 2025-05-26 13:13 | XMS_ITS | Clinical Summary ---
Author Organization [facility] Address [address] [facility] [address] [place] [id number] Phone Care Team Providers Care Beet Topper Name Role Phone Femi Vuong MD Primary Care Provider Allergies No known active allergies Medications amoxicillin (AMOXIL) 500 MG capsule TAKE 4 CAPSULES BY MOUTH 1 HOUR PRIOR TO DENTAL APPOINTMENT 07/31/20 23 Active apixaban (ELIQUIS) 5 mg tablet Take 5 mg by mouth 2 (two) times a day. 01/03/20 23 Active ciclopirox (CICLODAN) 0.77 % cream daily as needed. 07/25/20 23 Active desoximetasone (TOPICORT) 0.25 % ointment APPLY TO LEG RASH TWICE A DAY NEEDED NOT TO EXCEED 2 WEEKS AT A TIME 06/17/20 Active fluorouraciL (EFUDEX) 5 % cream 07/25/20 Active losartan-hydro CHLOROthiazide (HYZAAR) 100-25 mg per tablet Take 1 tablet by mouth every morning. 05/16/20 23 Active metFORMIN (GLUCOPHAGE) 1000 MG tablet Take 1,000 mg by mouth 2 (two) times a day with meals. 07/10/20 Active metoprolol tartrate (LOPRESSOR) 50 MG tablet Take 1 tablet by mouth every morning. 07/26/20 Active niacinamide 500 mg tablet Take 500 mg by mouth 2 (two) times a day. Active oxyCODONE 5 MG immediate release tablet Take 5 mg by mouth 3 (three) times a day as needed. 07/08/20 Active BD ULTRA-FINE MICRO PEN NEEDLE 32 gauge x 1/4 Ndle USE 1 NEEDLE DAILY TO INJECT SUBCUTANEOUSLY WITH INSULIN PEN DAILY 06/21/20 Active rosuvastatin (CRESTOR) 20 MG tablet Take 20 mg by mouth. 01/03/20 Active BD LUER-LETICIA SYRINGE 3 mL 21 gauge x 1 Syrg USE INTRAMUSCULARLY TWICE A WEEK DIRECTED 07/31/20 Active testosterone enanthate (DELATESTRYL) 200 mg/mL injection 100 mg once a week. 07/03/20 Active triamcinolone acetonide 0.1 % cream triamcinolone acetonide 0.1 % topical cream APPLY TO LEG RASH TWICE DAILY NEEDED NOT TO EXCEED 2 WEEKS Active prsip-hb-2-dha -ubn-mbbfxkn-z st (KRILL OIL) 1,177-787-68-8 0 mg Cap Take 1,000 mg by mouth 2 (two) times a week. Active MILK THISTLE ORAL Take 1,000 mg by mouth daily. Active Medication-Sidney e Text Magnesium 250 d3 Active tadalafiL (CIALIS) 5 MG tablet Take 5 mg by mouth daily as needed for erectile dysfunction. Active JARDIANCE 10 mg tabletIndicati ons:Type 2 diabetes mellitus with peripheral neuropathy TAKE 1 TABLET BY MOUTH EVERY DAY 90 tablet 03/01/20 Active Active Problems Problem Noted Date Diagnosed Date Hereditary hemochromatosis 05/04/2024 Assessment & Plan (05/04/2024 9:53 PM EDT): Regular therapeutic blood draws every two months. Sister recently diagnosed with same condition. -Check TSH level due to increased risk of thyroid problems with hemochromatosis. -Discussed increased risk of endocrine organ damage including diabetes, hypogonadism, hypothyroidism Type 2 diabetes mellitus with peripheral neuropa thy 08/25/2023 Assessment & Plan (05/04/2024 9:52 PM EDT): Stable on Metformin 1000mg BID and Jardiance 10mg daily. No reported side effects. Last A1c was 6.8 in December. Recent stressors and inconsistent diet due to personal circumstances-His mother last week of CHF after hip fracture and major seizure, and sister was diagnosed with a lung mass recently. -Continue current medication regimen. -Perform fasting blood work including A1c, lipid profile, and kidney function tests when ready. -Check urine protein level due to previous elevated levels up to 300. Assessment & Plan (01/30/2024 12:45 PM EDT): History of prediabetes with elevated A1c of 6% in 02/2019 and in diabetes range 7.1% in 12/2019. Further A1c tests were running between 6.3 and 6.6% in 2020. He was admitted in 12/2022 with symptomatic hyperglycemia and was given the diagnosis of type 2 diabetes. There was a question about pancreatitis with elevated amylase and lipase levels. He was treated with IV insulin as inpatient followed by metformin and Rybelsus. Rybelsus was stopped in 02/2023 because of continued elevation of amylase and lipase. Patient does not recall severe abdominal pain. In mid March 2023 Basaglar was added and at the end of March his metformin dose was increased to 1000 mg twice a day by his mix house tender when his estimated GFR improved to 58 from 46. In 07/2023 we stopped the Basaglar and he remained on maximum dose of metformin. Control remains good, A1c 6.8% recently. Estimated GFR stable at 54. Complications include lower extremity PNP, paresthesia resolved after B12 supplementation started. He has proteinuria with an albumin to creatinine ratio of 306 in 02/2023 followed by mix house tender Dr. Lane. No history of cardiovascular disease, nor retinopathy. Plan to continue the metformin 1000 mg twice a day with monitoring renal function. Add Jardiance 10 mg daily. Pros and cons discussed. Patient to call if side effects. Continue to work on healthy meal plan and regular exercise. 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 He was admitted in 12/2022 with symptomatic hyperglycemia and was given the diagnosis of type 2 diabetes. There was a question about pancreatitis with elevated amylase and lipase levels. He was treated with IV insulin as inpatient followed by metformin and Rybelsus. Rybelsus was stopped in 02/2023 because of continued elevation of amylase and lipase. Patient does not recall severe abdominal pain. In mid March Basaglar was added and at the end of March his metformin dose was increased to 1000 mg twice a day by his mix house tender when his estimated GFR improved to 58 from 46. Retrospective lab review showed elevated A1c test in the prediabetes range in 02/2019 at 6% and in diabetes range in 12/2019 at 7.1% what patient was not aware of until recently. Further A1c tests were running between 6.3 and 6.6% in 2020. His control is good on maximum metformin dose and 8 units of Basaglar at bedtime. Last A1c 6.7% on 07/30/2023. No further hypoglycemia after his Basaglar dose was increased from 12 units to 10 and more recently to 8 units. He had some lower extremity paresthesia which resolved after B12 supplementation started. He has proteinuria with an albumin to creatinine ratio of 306 in 02/2023 followed by mix house tender Dr. Lane. No history of cardiovascular disease, nor retinopathy. Discussed pathophysiology of diabetes and complications of uncontrolled diabetes. Discussed progressive nature of disease. Discussed rationale & goals for control. Role of diet, exercise, medications. Role of & goals for HbA1c & SMBG. Reviewed options to improve control with risks & benefits, including intensification of lifestyle & available medications. Reviewed normal insulin physiology, role of basal insulin. Reviewed site rotation, effect of site on insulin absorption. Discussed storage/shelf life of insulin. Discussed prevention & treatment of hypoglycemia. Suggested to continue the metformin 1000 mg twice a day with monitoring renal function. Will stop the Basaglar. Patient will work on carbohydrate controlled meal plan with a goal of about 50 g of carbohydrates with meals and about 15 g per snack. He already met the dietitian in 04/2023. He is planning to restart his exercise routine which will definitely help his blood sugars. If fasting sugars over 140-150 and or postprandial blood sugars over 180 repeatedly we may add an SGLT2 inhibitor. To call or send in log with problems with glucose control. Next labs after 10/27/2023. Hypogonadism in male 08/25/2023 Assessment & Plan (05/04/2024 9:53 PM EDT): Stable on 100mg testosterone injections weekly. No reported side effects. Last testosterone level check was in December. -Continue current medication regimen. - May check coverage for Xyosted-testosterone enanthate autoinjector with SQ use. -Check testosterone level mid-interval () after next injection (Saturday). -Check CBC due to testosterone treatment. Assessment & Plan (01/30/2024 12:49 PM EDT): Patient has been on testosterone replacement for years. 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 History of pituitary microadenoma-likely nonfunctioning. I suggested he decreases his testosterone dose from 100 mg testosterone enanthate twice a week to once a week back in 07/2023 but he continues on the twice a week dosing. As a side effect of testosterone he has polycythemia treated with phlebotomy every 2 months and followed by Dr. Joseph. He has untreated VIRI, repeat sleep study is pending. He is getting prostate exam regularly by his PCP, and recent visit with urologist diagnosed slight prostate enlargement. Partial ED, started on daily Cialis a month ago by urologist which improved urinary stream and helped prevent urinary dripping. Last PSA was normal at 0.9 in 02/2023. He reports benefit in mood, motivation, strength and libido while taking testosterone and would like to continue. Labs on 01/02/2024 did not report testosterone, CBC, will recheck results with lab in few days. Recommended patient to decrease his testosterone dose to 100 mg once a week while waiting for results considering the polycythemia and sleep apnea. Assessment & Plan (08/25/2023 4:52 PM EST): Patient has been on testosterone and replacement for years. He recalls a pituitary tumor diagnosed by Dr. Mai years ago. Unfortunately I have no records. He records his last pituitary MRI about 3 years ago by PCP. He is currently on 100 mg testosterone enanthate twice a week. As a side effect of testosterone he has polycythemia treated with phlebotomy every 2 months and followed by Dr. Sebastien dupree. He has on treated VIRI, repeat sleep study is pending. He is getting prostate exam regularly by his PCP, last PSA was normal at 0.9 in 02/2023. He reports benefit in mood, motivation, strength and libido while taking testosterone and would like to continue. Unfortunately I do not have any more recent testosterone levels on him. Considering the polycythemia I recommended he decrease his testosterone dose to 100 mg once a week. Would recheck peak testosterone 3 to 4 days after injection in 10/2023 with monitoring H&H as well. Pituitary mass 08/25/2023 Assessment & Plan (05/04/2024 9:54 PM EDT): Patient recalls a pituitary mass diagnosed by Dr. Jasper Mai years ago when evaluated for low testosterone. MRI brain 01[place]29/2021 [place] [facility]: This study was not dedicated to the pituitary. Per report partially visualized pituitary with known microadenoma, size not mentioned. CT head on 01/02/2023: No mention of abnormality in the pituitary. Assume that patient has a nonfunctioning pituitary microadenoma. Will try to get earlier imaging listing the size of the adenoma. Patient denies any headaches or visual changes. Assessment & Plan (01/30/2024 12:37 PM EDT): Patient recalls a pituitary mass diagnosed by Dr. Jasper Mai years ago when evaluated for low testosterone. MRI brain 01/29/2021 at [facility] [place]: This study was not dedicated to the pituitary. Per report partially visualized pituitary with known microadenoma, size not mentioned. CT head on 01/02/2023: No mention of abnormality in the pituitary. Assume that patient has a nonfunctioning pituitary microadenoma. Will try to get earlier imaging listing the size of the adenoma. Patient denies any headaches or visual changes. Assessment & Plan (08/25/2023 4:54 PM EST): Patient recalls a pituitary mass diagnosed by Dr. Jasper Mai years ago when evaluated for low testosterone. Unfortunately I do not have any details. Last MRI about 3 years ago by PCP, will request records. Patient denies any headaches or visual changes. Hypertensive disorder 04/07/2012 Overview (11/05/2014): Hypertensive disorder Hyperlipidemia 04/07/2012 Overview (11/05/2014): Hyperlipidemia Hearing loss 04/07/2012 Overview (11/05/2014): Hearing loss; Left Chronic anxiety 04/07/2012 Overview (11/05/2014): Chronic anxiety Encounters Date Type Department Care Team Description 02/27/2025 Refill [facility] [address] [place] [address] Merna Hurtado MD Medication Refill from Last 3 Months Family History Medical History Relation Comments Cancer Father Hypertension Mother Osteoarthritis Mother Seizures Mother Relation Status Comments Father Mother Alive Social History Tobacco Use Types Packs/Day Years Used Date Smoking Tobacco: Never Smokeless Tobacco: Never Tobacco Cessation:Counseling Given: Not Answered Alcohol Use Standard Drinks/Week Comments Never 0 (1 standard drink = 0.6 oz pur e alcohol) Education Answer Date Recorded Are you interested in more education? Not on bonnie e 03/28/2023 Are you concerned about learning? Not on file 03/28/2023 No 03/28/2023 No 03/28/2023 Digital Access Answer Date Recorded No 03/28/2023 No 03/28/2023 Reliable internet access at home? Not on file 03/28/2023 Device with a working camera? Not on file Sex and Gender Information Value Date Recorded Sex Assigned at Not on file Legal Sex Male 7:36 PM EST Gender Identity Not on file Sexual Orientation Not on file Last Filed Vital Signs Vital Sign Reading Time Taken Comments Blood Pressure 128/80 05/04/2024 11:34 AM EDT Pulse 73 05/04/2024 11:34 AM EDT Temperature 36.7 C (98 F) 04/07/2012 2:04 PM EDT Respiratory Rate - - Oxygen Saturation 99% 05/04/2024 11: 34 AM EDT Inhaled Oxygen Concentration - - Weight 103.6 kg (228 lb 6.4 oz) 024 11:34 AM EDT Height 180.3 cm (5' 10.98 ) 05/04/2024 11:34 AM EDT Body Mass Index 31.87 05/04/2024 11:34 AM EDT Plan of Treatment Upcoming Encounters Date Type Department Care Team (Late st Contact Info) Description 06/09/2025 3:00 PM EDT Office Visit [facility] [address] [place] [address] Susannah Marquez MD [address] [place] [address] [address] [place] [address] Health Maintenance Due Date Last Done Comments Adult Td,Tdap Booster 1964 HEMOGLOBIN A1C 1964 DEPRESSION SCREENING 1976 HEPATITIS C SCREENING 1982 HIV ONE-TIME SCREENING (18-65 YEARS) 1982 PNEUMOCOCCAL VACCINES (50+ years) (1 of 2 - PCV) 1983 COLOGUARD 2009 COLONOSCOPY 2009 COLORECTAL CANCER SCREENING 2009 FIT TEST 2009 FOBT 2009 SIGMOIDOSCOPY 2009 VIRTUAL COLONOSCOPY 2009 DIABETIC EYE EXAM 08/25/2023 RSV VACCINE (1 - Risk 60-74 years 1-dose series) 2024 COVID-19 VACCINE ( season) 2024 07/07/2021, 12/27/2020, 12/06/2020 BLOOD PRESSURE 11/04/2024 05/04/2024 POTASSIUM LEVEL 02/26/2025 02/27/2024, 01/17/2024 INFLUENZA VACCINE (#1) 2025 2, 07/07/2021, 07/13/2020, Additional history exists CREATININE LEVEL 10/23/2025 10/23/2024, , 01/17/2024, Additional history exists ZOSTER VACCINES Completed 02/02/2021, 07/13/2020 SMOKING STATUS SCREENING (Once After 26 Yrs) Completed 05/04/2024 HEPATITIS A VACCINES Aged Out No long er eligible based on patient's age to complete this topic HIB VACCINES Aged Out No longer eligi ble based on patient's age to complete this topic MENINGOCOCCAL VACCINES (ACWY) Aged Out No longer eligible based on patient's age to complete this topic MENINGOCOCCAL VACCINES (B) Aged Out N o longer eligible based on patient's age to complete this topic Medical Devices Not on file Procedures Procedure Name Priority Date/Time Associated Diagnosis Comments COMPREHENSIVE METABOLIC PANEL Routine 10/23/2024 9:48 AM EST BASIC METABOLIC PANEL Routine 02/27/2024 4:29 PM EDT from Last 3 Months or Most Recently Relevant to Health Maintenance Results * Comprehensive metabolic panel (10/23/2024 9:48 AM EST) us Historical Provider LAB BLOOD ORDERABLES Cally l Result * Basic metabolic panel (02/27/2024 4:29 PM EDT) us Historical Provider LAB BLOOD ORDERABLES Cally l Result from Last 3 Months or Most Recently Relevant to Health Maintenance Insurance [facility] Care Teams Beet Topper Relationship Specialty Start Date End Date Femi Vuong MD [address] [facility] [address] [place] [address] [email or web address] PCP - General 03/16/14 Additional Source Comments The information contained in this document represents components of the legal health record. It is not the complete legal health record.[facility]
--- OUTSIDE RECORDS SUMMARY | 2025-05-26 13:13 | XMS_ITS | Encounter Summary ---
Author Organization [facility] Address [address] [place] [address] Care Team Providers Care Central Station Operator Name Role Phone Ayo Vuong MD Primary Care Provider + Encounter Details Date Type Department Care Team (Late st Contact Info) Description 12/21/2024 Scanned Document [address] [place] [address] [phone] Provider, Generic Social History Tobacco Use Types [...] on filedocumented in this encounter Care Teams Central Station Operator Relationship Specialty Start Date End Date Ayo Vuong MD [address] [place] [address] [address] [place] [address] PCP - General 12/21/24 documented as of this encounter
--- OUTSIDE RECORDS SUMMARY | 2025-05-26 13:13 | XMS_ITS | Clinical Summary ---
Author Organization [facility] Address [address] [place] [id number] Care Team Providers Care Cloth Shearer Name Role Phone Ayo Vuong MD Primary Care Provider + Allergies No known active allergies Medications Eliquis 5 MG tablet Take 5 mg by mouth 2 times a day. Active cyanocobalamin (VITAMIN B-12) 1000 MCG tablet Take 1,000 mcg by mouth daily. Active DULoxetine (CYMBALTA) 20 MG capsule Take 20 mg by mouth 2 times a day. Active Jardiance 10 MG tablet Take 1 tablet by mouth daily. 06/01/20 24 Active Krill Oil 1000 MG Cap Take 1,000 mg by mouth. Active losartan-hydro CHLOROthiazide (HYZAAR) 100-25 MG per tablet Take 1 tablet by mouth. Active metFORMIN (GLUCOPHAGE) 1000 MG tablet Take 1,000 mg by mouth 2 (two) times a day with meals. Active metoPROLOL SUCCINATE (TOPROL-XL) 50 MG 24 hr tablet Take 50 mg by mouth. 12/12/19 25 Active MILK THISTLE PO Take 1,000 mg by [...] mg tablet Take 5 mg by mouth. Active testosterone enanthate (DELATESTRYL) 200 MG/ML injection testosterone enanthate 200 mg/mL intramuscular oil INJECT 0.5 CC INTRAMSUCULARLY TWICE A WEEK ON SATURDAY & SATURDAY(VIAL ONLY STABLE FOR 28 DAYS AFTER BEING PUNCTURED AND SHOULD BE DISCARDED Activ e Active Problems No known active problems Social History Tobacco Use Types Packs/Day Years [...] 84 12/21/2024 2:18 PM EDT Temperature 36.5 C (97.7 F) 12/21/2024 2:18 PM EDT Respiratory Rate 16 12/21/2024 2:18 PM EDT [...] 60-74 years 1-dose series) 2024 Influenza Vaccine 04/16/2025 COVID-19 Vaccine ( - 2023-2 5 season) 2025 Hepatitis B Vaccines Aged Out No long er eligible based on patient's age to complete this topic Insurance [facility] Care Teams Cloth Shearer Relationship Specialty Start Date End Date Ayo Vuong MD [address] [place] [address] [address] [place] [address] PCP - General 12/21/24
--- OUTSIDE RECORDS SUMMARY | 2025-05-26 13:13 | XMS_ITS | Encounter Summary ---
Author Organization [facility] Address [address] [place] [address] Care Team Providers Care Starch Factory Laborer Name Role Phone Ayo Vuong MD Primary Care Provider + Encounter Details Date Type Department Care Team (Late st Contact Info) Description 12/21/2024 Scanned Document [address] [place] [address] [phone] Provider, Generic Social History Tobacco Use Types [...] on filedocumented in this encounter Care Teams Starch Factory Laborer Relationship Specialty Start Date End Date Ayo Vuong MD [address] [place] [address] [address] [place] [address] PCP - General 12/21/24 documented as of this encounter
== END 2025-05-26 10:39 | disposition home or self-care (01) ==
LOC: HO.BBR 10:38
PROVIDERS: PCP Internal Medicine; Visit Provider Internal Medicine Hematology & Oncology
DX: D75.1 Secondary polycythemia (principal)
CPT/HCPCS: 85018; 99195